=== PATIENT | female | born 1970 | race African-American/Black ===

== ENCOUNTER 2016-11-28 19:33 | Emergency (ER) | payer MEDICARE, MEDICAID ==
[~2016-11-28] VITALS: Ht 160 cm; Wt 81.0 kg
[2016-11-28] MEDS ORDERED: FENTANYL CITRATE/PF 50MCG/ML 2ML VIAL IV ONE (22:15)
[2016-11-28] MEDS ORDERED: ONDANSETRON HCL 4MG/2ML VIAL IV STA (22:15)
[2016-11-28 22:59] LABS: BASOPHILS % 0.4 % (0.0-2.0); EOSINOPHILS % 0.3 % (0.0-5.0); HEMOGLOBIN. 12.3 g/dL (12.0-16.0); LYMPHOCYTES % 30.8 % (20.0-50.0); MEAN CORPUSCULAR HEMOGLOBIN 28.7 pg (28.0-32.0); MEAN CORPUSCULAR VOLUME 86.6 fL (81.0-99.0); MEAN PLATELET VOLUME 8.2 fl (7.4-10.4); MONOCYTES % 6.7 % (2.0-8.0); NEUTROPHILS % 61.8 % (40.0-76.0); PLATELET 249 x1000/uL (130-400); RED BLOOD CELL COUNT 4.27 mill/uL (4.2-5.4); RED CELL DISTRIBUTION WIDTH 13.9 % (11.6-14.6)
[2016-11-28 23:08] LABS: CHLORIDE 106 mEq/L (98-107); INR 1.1; PROTHROMBIN TIME 11.4 sec (9.4-11.6)
[2016-11-28 23:16] LABS: CARBON DIOXIDE 26 mEq/L (21-32)
[2016-11-28 23:19] LABS: TROPONIN I < 0.02 ng/mL (0.00-0.04)
[2016-11-28] MEDS ORDERED: POTASSIUM CHLORIDE 20MEQ TABLET SR PO SCH (23:30)
[2016-11-29 03:13] VITALS: BP 119/76
== END 2016-11-29 03:15 | disposition home or self-care (01) ==
LOC: ER 19:33
DX: R07.9 Chest pain, unspecified (principal); E87.6 Hypokalemia; J45.909 Unspecified asthma, uncomplicated; Z88.1 Allergy status to other antibiotic agents; J44.9 Chronic obstructive pulmonary disease, unspecified; Z85.3 Personal history of malignant neoplasm of breast; Z88.6 Allergy status to analgesic agent; Z88.8 Allergy status to other drugs, medicaments and biological substances; Z91.048 Other nonmedicinal substance allergy status
CPT/HCPCS: 36415; 71010; 80053; 83880; 84484; 85025; 85379; 85610; 93005; 96374; 96375; 99285; J2405; J3010

== ENCOUNTER 2018-10-26 13:01 | Inpatient (IN) | payer MEDICARE, MEDICAID ==
[~2018-10-26] VITALS: Ht 161.3 cm; Wt 97.5 kg
[2018-10-26] MEDS ORDERED: SODIUM CHLORIDE 0.9% 1,000 ML IV ONE (13:39)
[2018-10-26] MEDS ORDERED: MORPHINE SULFATE 10 MG/ML CPJ IV ONE (14:30)
[2018-10-26] MEDS ORDERED: ONDANSETRON HCL 4MG/2ML INJ IV ONE (14:30)
[2018-10-26 14:50] LABS: BASOPHILS % 0.4 % (0.0-2.0); EOSINOPHILS % 0.6 % (0.0-5.0); HEMATOCRIT. 38.4 % (36.0-48.0); HEMOGLOBIN. 12.5 g/dL (12.0-16.0); LYMPHOCYTES % 36.6 % (20.0-50.0); MEAN CORPUSCULAR HEMOGLOBIN 28.6 pg (28.0-32.0); MEAN PLATELET VOLUME 7.8 fl (7.4-10.4); MONOCYTES % 5.5 % (2.0-8.0); NEUTROPHILS % 56.9 % (40.0-76.0); PLATELET 282 x1000/uL (130-400); RED BLOOD CELL COUNT 4.36 mill/uL (4.2-5.4); RED CELL DISTRIBUTION WIDTH 14.1 % (11.6-14.6)
[2018-10-26 14:56] LABS: CHLORIDE 106 mEq/L (98-107)
[2018-10-26 15:21] LABS: HCG SCREEN NEGATIVE
[2018-10-26] MEDS ORDERED: HYDROMORPHONE HCL/PF 2MG/ML CPJ IV ONE (16:00)
[2018-10-26] MEDS ORDERED: ASPIRIN 81MG TABLET PO ONE (16:45)
[2018-10-26 18:45] VITALS: BP 114/72
[2018-10-26 18:58] VITALS: BP 114/72
[2018-10-26 20:00] VITALS: BP 106/58
[2018-10-26] MEDS ORDERED: DIPH25CA83 PO (22:18)
[2018-10-26] MEDS ORDERED: HYDR-4009 PO (22:18)
[2018-10-26] MEDS ORDERED: LUBI24CA5 PO (22:18)
[2018-10-26] MEDS ORDERED: NITR0.4T49 SL (22:18)
[2018-10-26] MEDS ORDERED: FERR-71 PO (22:18)
[2018-10-26] MEDS ORDERED: TRIA1TAB92 PO (22:18)
[2018-10-26] MEDS ORDERED: ALBU18HF2 IH (22:18)
[2018-10-26] MEDS ORDERED: S350 PO (22:18)
[2018-10-26] MEDS ORDERED: PROM5SYR PO (22:18)
[2018-10-26] MEDS ORDERED: VENL-180 PO (22:18)
[2018-10-26] MEDS ORDERED: PROM25TA13 PO (22:18)
[2018-10-26] MEDS ORDERED: ALBU05 NEB (22:18)
[2018-10-26] MEDS ORDERED: LORA10TA7 PO (22:18)
[2018-10-26] MEDS ORDERED: BUDE6HFA INH (22:18)
[2018-10-26] MEDS ORDERED: LIDO700A30 TP (22:18)
[2018-10-26] MEDS ORDERED: GUAIFENESIN 200MG/10ML SUGAR FREE UDC PO PRN (22:30)
[2018-10-26] MEDS ORDERED: CLONIDINE 0.1MG TABLET PO PRN (22:30)
[2018-10-26] MEDS: HYDROMORPHONE HCL/PF 2MG/ML CPJ IV PRN (22:58)
[2018-10-27] VITALS: BP 126/78
[2018-10-27] MEDS: ONDANSETRON HCL 4MG/2ML INJ IV PRN ×4 (00:37→20:11)
[2018-10-27] MEDS: ACETAMINOPHEN 325MG TABLET PO PRN ×2 (00:41→07:12)
[2018-10-27 04:00] VITALS: BP 116/68
[2018-10-27 07:47] LABS: BASOPHILS % 0.3 % (0.0-2.0); EOSINOPHILS % 0.2 % (0.0-5.0); HEMATOCRIT. 32.6 % (36.0-48.0); HEMOGLOBIN. 10.7 g/dL (12.0-16.0); LYMPHOCYTES % 26.9 % (20.0-50.0); MEAN CORPUSCULAR HEMOGLOBIN 28.5 pg (28.0-32.0); MEAN CORPUSCULAR VOLUME 87.3 fL (81.0-99.0); MONOCYTES % 6.6 % (2.0-8.0); PLATELET 275 x1000/uL (130-400); RED BLOOD CELL COUNT 3.74 mill/uL (4.2-5.4); RED CELL DISTRIBUTION WIDTH 13.8 % (11.6-14.6)
[2018-10-27 07:57] LABS: CHLORIDE 106 mEq/L (98-107)
[2018-10-27 08:00] VITALS: BP 116/70
[2018-10-27] MEDS: OMEPRAZOLE 20MG CAPSULE EXTENDED RELEASE PO SCH (08:18)
[2018-10-27] MEDS: HYDROMORPHONE HCL/PF 2MG/ML CPJ IV PRN ×3 (10:33→20:00)
[2018-10-27 12:00] VITALS: BP 121/77
[2018-10-27 16:00] VITALS: BP 136/81
[2018-10-27 20:00] VITALS: BP 126/80
[2018-10-28] VITALS: BP 142/61
[2018-10-28] MEDS: HYDROMORPHONE HCL/PF 2MG/ML CPJ IV PRN ×5 (00:12→23:51)
[2018-10-28 04:00] VITALS: BP 137/88
[2018-10-28] MEDS: ONDANSETRON HCL 4MG/2ML INJ IV PRN ×4 (04:37→17:40)
[2018-10-28 08:00] VITALS: BP 110/70
[2018-10-28] MEDS: OMEPRAZOLE 20MG CAPSULE EXTENDED RELEASE PO SCH (11:37)
[2018-10-28] MEDS: DOCUSATE SODIUM 100MG CAPSULE PO PRN ×2 (11:37→21:20)
[2018-10-28 12:00] VITALS: BP 113/62
[2018-10-28] MEDS ORDERED: DIPHENHYDRAMINE 25MG CAPSULE PO PRN (12:00)
[2018-10-28] MEDS ORDERED: LORATADINE 10MG TABLET PO SCH (12:00)
[2018-10-28 16:00] VITALS: BP 135/84
[2018-10-28] MEDS: LORATADINE 10MG TABLET PO SCH (17:35)
[2018-10-28 20:00] VITALS: BP 139/78
[2018-10-28] MEDS ORDERED: MAGNESIUM CITRATE 300ML SOLUTION PO NR (21:30)
[2018-10-29] VITALS: BP 132/77
[2018-10-29] MEDS: ONDANSETRON HCL 4MG/2ML INJ IV PRN ×2 (00:01→08:57)
[2018-10-29 04:00] VITALS: BP 133/61
[2018-10-29 07:06] LABS: BASOPHILS % 0.4 % (0.0-2.0); EOSINOPHILS % 1.6 % (0.0-5.0); HEMATOCRIT. 38.8 % (36.0-48.0); HEMOGLOBIN. 12.6 g/dL (12.0-16.0); LYMPHOCYTES % 35.3 % (20.0-50.0); MEAN CORPUSCULAR HEMOGLOBIN 28.5 pg (28.0-32.0); MEAN CORPUSCULAR VOLUME 87.5 fL (81.0-99.0); MONOCYTES % 8.5 % (2.0-8.0); NEUTROPHILS % 54.2 % (40.0-76.0); PLATELET 297 x1000/uL (130-400); RED BLOOD CELL COUNT 4.43 mill/uL (4.2-5.4); RED CELL DISTRIBUTION WIDTH 14.1 % (11.6-14.6)
[2018-10-29 07:13] LABS: CHLORIDE 104 mEq/L (98-107)
[2018-10-29 08:00] VITALS: BP 141/87
[2018-10-29] MEDS: LORATADINE 10MG TABLET PO SCH (08:57)
[2018-10-29] MEDS: DOCUSATE SODIUM 100MG CAPSULE PO PRN (08:57)
[2018-10-29] MEDS ORDERED: FAMOTIDINE 20MG TABLET PO SCH (09:00)
[2018-10-29] MEDS: HYDROMORPHONE HCL/PF 2MG/ML CPJ IV PRN (09:50)
[2018-10-29 12:00] VITALS: BP 135/80
[2018-10-29 16:09] VITALS: BP 125/90
== END 2018-10-29 17:30 | disposition home or self-care (01) | DRG 313 ==
LOC: ER 13:01 → 5WST 16:36 → ENRESERV 17:06
PROVIDERS: ADMIT Internal Medicine; ATTEND Internal Medicine
DX: R07.89 Other chest pain (principal); Z85.3 Personal history of malignant neoplasm of breast; M54.30 Sciatica, unspecified side; F32.9 Major depressive disorder, single episode, unspecified; J44.9 Chronic obstructive pulmonary disease, unspecified; J45.20 Mild intermittent asthma, uncomplicated; Z83.3 Family history of diabetes mellitus; Z90.13 Acquired absence of bilateral breasts and nipples; Z98.82 Breast implant status; Z88.8 Allergy status to other drugs, medicaments and biological substances; Z88.1 Allergy status to other antibiotic agents; Z91.041 Radiographic dye allergy status
CPT/HCPCS: 36415; 71045; 80048; 82040; 83880; 84484; 84703; 93005; 99285; J1170; J2270; J2405; J7030